=== PATIENT | female | born 1995 ===

== ENCOUNTER 2018-06-27 14:49 | Emergency (ER) | payer OTHER ==
[2018-06-27 14:57] VITALS: TEMP 99.1
--- NOTE | 2018-06-27 15:54 | RAD ---
HISTORY: pleuritic pain, R chest COMPARISON: None available. TECHNIQUE: Chest PA and lateral, 2 views FINDINGS: LUNGS: No focal consolidation. Please note that chest x-ray has limited sensitivity for the detection of pulmonary masses. PLEURA: No significant pleural effusion identified. No definite pneumothorax . CARDIOVASCULAR: The cardiomediastinal silhouette appears within normal limits of size. No atherosclerotic calcification present. OSSEOUS STRUCTURES: No acute osseous abnormality identified. VISUALIZED UPPER ABDOMEN: Unremarkable. OTHER FINDINGS: Bilateral nipple rings. IMPRESSION: No acute findings identified.
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
[2018-06-27 16:32] VITALS: BP 117/74; PULSE 72; RESP 20
[2018-06-27 17:15] VITALS: O2SAT 99
== END 2018-06-27 16:36 | disposition home or self-care (01) ==
LOC: C.ER 14:49
DX: S20.219A Contusion of unspecified front wall of thorax, initial encounter (principal); V89.2XXA Person injured in unspecified motor-vehicle accident, traffic, initial encounter